=== PATIENT | female | born 1950 | race Caucasian/White ===

== ENCOUNTER 2018-11-10 17:03 | Emergency (ER) | payer MEDICARE ==
[2018-11-10] MEDS ORDERED: Acetaminophen TAB* 325 MG PO ONE (18:35)
[2018-11-10] MEDS ORDERED: Ibuprofen TAB* 600 MG PO ONE (18:39)
--- NOTE | 2018-11-10 18:39 | ED ---
Lower Extremity - HPI Summary HPI Summary: 68-year-old female presents with right foot injury today. She states that she has a history of myasthenia gravis and got caught her foot caught getting out of the walker. She states she has not been able to place weight on the area. States that pain is diffusely location on foot. No numbness or tingling. She states she has not followed up with a neurologist about MS. She states ibuprofen works well for pain. She states narcotics make it so she cant breathe. - History of Current Complaint Chief Complaint: EDExtremityLower Stated Complaint: HURT RIGHT FOOT PER PT Time Seen by Provider: 11/10/18 18:23 Pain Intensity: 9 - Allergies/Home Medications Allergies/Adverse Reactions: Allergies Allergy/AdvReac Type Severity Reaction Status Date / Time bupivacaine Allergy Unknown Verified 11/10/18 17:32 Reaction Details gluten Allergy Muscle Ache Verified 11/10/18 17:32 lidocaine Allergy Unknown Verified 11/10/18 17:32 Reaction Details Sulfa (Sulfonamide Allergy Unknown Verified 11/10/18 17:32 Antibiotics) Reaction Details PMH/Surg Hx/FS Hx/Imm Hx Endocrine/Hematology History: Denies: Hx Anticoagulant Therapy Respiratory History: Denies: Hx Asthma Infectious Disease History: No Infectious Disease History: Denies: Traveled Outside the [place] in Last 30 Days - Social History Alcohol Use: None Substance Use Type: Reports: None Smoking Status (MU): Never Smoked Tobacco Review of Systems Negative: Fever Negative: Chest Pain Negative: Shortness Of Breath Positive: Myalgia - right foot pain All Other Systems Reviewed And Are Negative: Yes Physical Exam Triage Information Reviewed: Yes Vital Signs On Initial Exam: Initial Vitals Temp Pulse Resp BP Pulse Ox 98.7 F 93 18 169/85 96 11/10/18 17:27 11/10/18 17:27 11/10/18 17:27 11/10/18 17:27 11/10/18 17:27 Vital Signs Reviewed: Yes Appearance: Positive: Well-Appearing Skin: Positive: Warm, Dry Head/Face: Positive: Normal Head/Face Inspection Eyes: Positive: Normal, Conjunctiva Clear ENT: Positive: Pharynx normal Respiratory/Lung Sounds: Positive: Clear to Auscultation, Breath Sounds Present Cardiovascular: Positive: Normal, RRR Musculoskeletal: Positive: Limited @ - right foot, Other - tenderness over entire right foot, good pulses, sensation grossly intact Neurological: Positive: Normal Psychiatric: Positive: Normal Diagnostics - Vital Signs Vital Signs Temp Pulse Resp BP Pulse Ox 11/10/18 17:27 98.7 F 93 18 169/85 96 - Laboratory Lab Statement: Any lab studies that have been ordered have been reviewed, and results considered in the medical decision making process. - Radiology foot Radiology Interpretation Completed By: Radiologist Summary of Radiographic Findings: no fracture Lower Extremity Course/Dx - Course Course Of Treatment: 68-year-old female presents with right foot injury today. She states that she has a history of myasthenia gravis and got caught her foot caught getting out of the walker. She states she has not been able to place weight on the area. States that pain is diffusely location on foot.No numbness or tingling. She states she has not followed up with a neurologist about MS. She states ibuprofen works well for pain. She states narcotics make it so she cant breathe. On exam tenderness her entire right foot. X-ray read by me and dr doyle as no fracture. Gave boot and walker. Told to follow up with orthopedic if no improvement. Patient understands agrees with plan. - Diagnoses Differential Diagnosis/HQI/PQRI: Positive: Fracture (Closed), Sprain, Strain Provider Diagnoses: Right foot pain Discharge - Sign-Out/Discharge Documenting (check all that apply): Patient Departure Patient Received Moderate/Deep Sedation with Procedure: No - Discharge Plan Condition: Good Disposition: HOME Patient Education Materials: R.I.C.E. Treatment (ED) Referrals: Glen Porter MD [Medical Doctor] - Mitchel Andersen MD [Medical Doctor] - Coco PERALES,Michael Franks [Primary Care Provider] - Additional Instructions: ice, elevate Take tyenlol or ibuprofen every 6 hours keep boot on area Follow up with ortho if no improvement follow up with neurology Return to ED if develop any new or worsening symptoms - Billing Disposition and Condition Condition: GOOD Disposition: Home
[2018-11-10 20:50] VITALS: BP 137/73
== END 2018-11-10 20:50 | disposition home or self-care (01) ==
LOC: ED 17:03
DX: M79.671 Pain in right foot (principal); Z88.2 Allergy status to sulfonamides
CPT/HCPCS: 99282; A9270-GY